=== PATIENT | male | born 1975 | race Caucasian/White ===

== ENCOUNTER 2023-09-27 07:30 | Outpatient (CLI) | payer BC ==
[2023-09-27 12:03] LABS: HCT - HEMATOCRIT 45.2 % (42.0-52.0); HGB - HEMOGLOBIN 15.3 g/dL (14.0-18.0); MEAN CORPUSCULAR HEMOGLOBIN 32.5 pg (27.0-31.0); MEAN CORPUSCULAR HGB CONC 33.8 g/dL (32.0-36.0); MEAN PLATELET VOLUME 8.6 fL (7.4-11.4); RED BLOOD COUNT 4.71 10^6/uL (4.70-6.10); RED CELL DISTRIBUTION WIDTH 13.6 % (12.0-15.0); WHITE BLOOD COUNT 6.2 x10^3/uL (4.8-10.8)
[2023-09-27 12:42] LABS: CALCIUM 9.4 mg/dL (8.5-10.3); CREATININE 0.9 mg/dL (0.6-1.3); POTASSIUM 4.1 mmol/L (3.5-4.5)
== END 2023-09-27 07:45 | disposition home or self-care (01) ==
LOC: LAB.N 07:30
PROVIDERS: ATTEND Nurse Practitioner
DX: M79.652 Pain in left thigh (principal)
CPT/HCPCS: 36415; 80048; 85027; 85379

== ENCOUNTER 2023-09-27 13:03 | Emergency (ER) | payer BC ==
--- NOTE | 2023-09-27 13:49 | ED Physician Documentation ---
History of Present Illness - Stated complaint Stated Complaint: SENT BY PCP, BLOOD - Chief complaint Chief Complaint: General - History obtained from History obtained from: Patient - Additonal information Additional information: Patient is a 48-year-old male presenting for evaluation of redness and discomfort to the left thigh that he has noticed for a few weeks. He went to the walk-in clinic this morning and they did outpatient labs including a D-dimer which was mildly elevated. He was called and told to come to the emergency department for an ultrasound to rule out a DVT. He denies a history of PE or DVT. No chest pain or shortness of air syncope. Denies recent travel, prolonged immobilization, surgery or hospitalization. He denies any swelling in the lower legs. Denies any known trauma. Review of Systems Constitutional: denies: Fever Cardiac: denies: Chest pain / pressure Respiratory: denies: Dyspnea GI: denies: Abdominal Pain Musculoskeletal: reports: Extremity pain PD PAST MEDICAL HISTORY - Past Medical History Psych: Depression, Anxiety - Present Medications Home Medications: Ambulatory Orders Medication Instructions Recorded Confirmed Apixaban [Eliquis] 2 tab PO BID #104 tablet 09/27/23 - Allergies Allergies/Adverse Reactions: Allergies Allergy/AdvReac Type Severity Reaction Status Date / Time No Known Drug Allergies Allergy Verified 09/27/23 13:16 - Social History Does the pt smoke?: No Smoking Status: Never smoker PD ED PE NORMAL - General General: Alert and oriented X 3, No acute distress, Well developed/nourished - HEENT HEENT: Atraumatic, Moist mucous membranes, Pharynx benign - Neck Neck: Supple, no meningeal sign - Cardiac Cardiac: RRR, Strong equal pulses - Respiratory Respiratory: No respiratory distress, Clear bilaterally - Derm Derm: Other (Faint erythema to left inner thigh with no appreciable swelling, mild tenderness, no fluctuance) - Extremities Extremities: No calf tenderness / cord, Other (Negative Homans) Results - Vitals Vitals: Vital Signs - 24 hr 09/27/23 09/27/23 13:08 16:18 Temperature 36.4 C L Heart Rate 92 85 Respiratory 18 18 Rate Blood Pressure 151/81 H 150/88 H O2 Saturation 98 97 Oxygen O2 Source Room air PD Medical Decision Making - ED course ED course: Pt with swelling, tenderness to L inner thigh with elevated d-dimer done as an outpatient. Neurovascularly intact in extremity with no trauma. U/S ordered and pending at time of shift change. Pt signed out to oncoming provider. Departure - Departure Disposition: 01 Home, Self Care Clinical Impression: Superficial vein thrombosis Condition: Good Instructions: ED Phlebitis Superficial Prescriptions: Apixaban [Eliquis] 2 tab PO BID #104 tablet Comments: I sent your prescription electronically to the [facility] pharmacy at the corner of [address] here in [place]. As discussed we have elected to start you on anticoagulants and the total length of time will be 45 days. Follow-up with your doctor within the week for recheck, they may elect to repeat the ultrasound in a week or 2. Forms: PCP List Discharge Date/Time: 09/27/23 16:18
--- NOTE | 2023-09-27 16:13 | ED Physician Documentation ---
ED Addendum - Addendum Addendum: 09/27/23 16:[address] Benitez at shift change. He does have superficial vein thrombosis which is in fairly close proximity to the deep vein system. Discussed with patient and options for either anticoagulation versus aspirin and conservative management were discussed and he would like to go ahead with anticoagulation and a prescription for Xarelto 2 tabs p.o. twice daily for a week and then 1 tab p.o. twice daily for a total of 45 days was sent to the pharmacy. Condition: Stable Disposition: Discharged Diagnosis: 1. Left leg superficial thromboembolism
[2023-09-27 16:25] VITALS: BP 150/88; O2SAT 97
--- NOTE | 2023-09-27 16:25 | Ultrasound Report ---
PROCEDURE: Duplex Ext Veins Left INDICATIONS: thigh swelling/elevated ddimer TECHNIQUE: Real-time imaging, as well as color and pulse Doppler interrogation, were performed of the lower extr emity deep veins from the inguinal ligament to the popliteal fossa. Attempted visualization of the ca lf veins was performed. COMPARISON: None. FINDINGS: The deep veins are normally compressible, and free of intraluminal thrombus. Color and pu lse Doppler demonstrate normal phasic intraluminal flow. There is normal augmentation response to di stal compression maneuver. In a left superficial venous structure medial to the knee there is a part ially occlusive clot, chronicity uncertain. IMPRESSION: No deep venous thrombosis of the visualized lower extremity. At the medial aspect of the knee a superficial soft tissue veins and contains partially occlusive clot, chronicity uncertain. Reviewed by: Jasper Ratliff MD on 09/27/2023 4:23 PM PST Approved by: Jasper Ratliff MD on 09/27/2023 4:23 PM PST Station ID: [id number]
== END 2023-09-27 16:18 | disposition home or self-care (01) ==
LOC: ED 13:03
DX: I82.812 Embolism and thrombosis of superficial veins of left lower extremity (principal)
CPT/HCPCS: 99284

== ENCOUNTER 2023-11-12 07:21 | Outpatient (CLI) | payer BC ==
[2023-11-12 07:56] LABS: BASOPHILS # (AUTO) 0.1 10^3/uL (0.0-0.1); BASOPHILS % (AUTO) 1.1 %; EOSINOPHILS # (AUTO) 0.1 10^3/uL (0.0-0.7); EOSINOPHILS % (AUTO) 2.4 %; HCT - HEMATOCRIT 44.6 % (42.0-52.0); LYMPHOCYTES # (AUTO) 1.1 10^3/uL (1.5-3.5); LYMPHOCYTES % (AUTO) 22.4 %; MEAN CORPUSCULAR HEMOGLOBIN 32.4 pg (27.0-31.0); MEAN CORPUSCULAR HGB CONC 33.6 g/dL (32.0-36.0); MEAN CORPUSCULAR VOLUME 96.3 fL (80.0-94.0); MEAN PLATELET VOLUME 8.1 fL (7.4-11.4); MONOCYTES # (AUTO) 0.5 10^3/uL (0.0-1.0); MONOCYTES % (AUTO) 11.5 %; NEUTROPHILS # (AUTO) 2.9 10^3/uL (1.5-6.6); NEUTROPHILS % (AUTO) 62.4 %; PLT - PLATELET COUNT 185 10^3/uL (130-450); RED BLOOD COUNT 4.63 10^6/uL (4.70-6.10); RED CELL DISTRIBUTION WIDTH 13.8 % (12.0-15.0); WHITE BLOOD COUNT 4.7 x10^3/uL (4.8-10.8)
[2023-11-12 08:02] LABS: ALBUMIN 3.9 g/dL (3.2-5.5); ALBUMIN/GLOBULIN RATIO 1.1 (1.0-2.2); ALKALINE PHOSPHATASE 78 IU/L (42-121); ALT ALANINE AMINOTRANSFERASE 42 IU/L (10-60); AST ASPARTATE AMINOTRANSFERASE 30 IU/L (10-42); BILIRUBIN,TOTAL 0.4 mg/dL (0.2-1.0); BUN - BLOOD UREA NITROGEN 18 mg/dL (6-20); CALCIUM 9.1 mg/dL (8.5-10.3); CARBON DIOXIDE - CO2 24 mmol/L (21-32); CHLORIDE 105 mmol/L (101-111); CHOL/HDL RATIO 4.4 (<5.0); CHOLESTEROL 159 mg/dL; CREATININE 0.9 mg/dL (0.6-1.3); GFR - MDRD 90 (>89); GLUCOSE 132 mg/dL (74-104); HDL CHOLESTEROL 36 mg/dL; LDL CHOLESTEROL,CALCULATED 72 mg/dL; POTASSIUM 3.9 mmol/L (3.5-4.5); SODIUM 136 mmol/L (135-145); TOTAL PROTEIN 7.6 g/dL (6.4-8.9); TRIGLYCERIDES 253 mg/dL (48-352); VLDL CHOLESTEROL 51 mg/dL
[2023-11-12 08:16] LABS: THYROID STIMULATING HORMONE 1.41 uIU/mL (0.34-5.60)
[2023-11-17 09:08] LABS: FREE TESTOSTERONE(DIRECT) 8.8 pg/mL (6.8-21.5)
== END 2023-11-12 07:22 | disposition home or self-care (01) ==
LOC: LAB 07:21
PROVIDERS: ATTEND Nurse Practitioner Family
DX: I82.402 Acute embolism and thrombosis of unspecified deep veins of left lower extremity (principal); I82.5Y2 Chronic embolism and thrombosis of unspecified deep veins of left proximal lower extremity; Z12.5 Encounter for screening for malignant neoplasm of prostate; R68.82 Decreased libido
CPT/HCPCS: 36415; 80053; 80061; 83721; 84153; 84402; 84403; 84443; 85025; 85379

== ENCOUNTER 2024-02-03 10:27 | Outpatient (CLI) | payer BC | END 2024-02-03 10:28 | disposition home or self-care (01) | LOC: NS 10:27 | PROVIDERS: ATTEND Nurse Practitioner Family | DX: Z71.3 Dietary counseling and surveillance (principal); R73.03 Prediabetes; I10 Essential (primary) hypertension | CPT/HCPCS: 97802 ==